=== PATIENT | male | born 1965 | race Caucasian/White ===

== ENCOUNTER 2016-12-23 10:15 | Emergency (ER) | payer OTHER ==
[~2016-12-23] VITALS: Ht 172.7 cm; Wt 77.1 kg
--- NOTE | 2016-12-23 10:42 | PHYS DOC ---
Adult General Chief Complaint Chief Complaint: ANIMAL BITE HPI HPI Patient is a 51-year-old male who presents with a dog bite to the right calf which occurred this morning at about 7:30. He was able to find the weight training instructor of the dog who told him the dog's shots are not up-to-date. He did notify police. Patient's tetanus is up-to-date. He is [employer]. Patient washed the dog bite with soap and water after the bite occurred. Review of Systems Review of Systems Constitutional: Denies fever or chills [] Respiratory: Denies cough or shortness of breath [] Musculoskeletal: Denies other than noted Allergies Allergies Allergies Coded Allergies Type Severity Reaction Last Updated Verified No Known Drug Allergies 12/23/16 No Physical Exam Physical Exam Constitutional: Well developed, well nourished, no acute distress, non-toxic appearance. [] HENT: Normocephalic, atraumatic, bilateral external ears normal, nose normal. [ ] Eyes: conjunctiva normal, no discharge. [] Neck: Normal range of motion, no stridor. [] Skin: Warm, dry, no erythema, no rash. [] Extremities: Right lower extremity: 2 superficial abrasions located on the upper posterior calf with some surrounding ecchymosis, appears consistent with a dog bite. There is no deep puncture wound present. Neurologic: Alert and oriented X 3, normal motor function, normal sensory function, no focal deficits noted. EKG EKG [] Radiology/Procedures Radiology/Procedures [] Course & Med Decision Making Course & Med Decision Making Pertinent Labs and Imaging studies reviewed. (See chart for details) Patient had a dog bite by a dog who does not have current rabies immunization, but the dog was identified, weight training instructor is aware, and police were notified. This was done by the patient prior to arrival. Patient's tetanus is up-to-date. There is no puncture wound or other indication for antibiotics. I discussed this with the patient. Precautions were given in terms of any evidence of infection, he should be rechecked, he is comfortable with that plan. Patient is stable for discharge. [] Dragon Disclaimer Dragon Disclaimer This chart was dictated in whole or in part using Voice Recognition software in a busy, high-work load, and often noisy Emergency Department environment. It may contain unintended and wholly unrecognized errors or omissions. Departure Departure: Impression: Primary Impression: Dog bite of calf Disposition: 01 HOME, SELF-CARE Condition: STABLE Additional Instructions: Keep it clean by washing 2-3 times a day with antibacterial soap and water. You may expect the area to become more bruised and painful over the next 1-2 days, then should start improving. You may expect some drainage of pinkish to orange clear fluid. If the area becomes more painful instead of getting better, red, hot to the touch, or any drainage of pus, we would consider antibiotics, it should be rechecked. As we Discussed, your tetanus is up-to-date. As we discussed, the dog is being observed and police are involved. Rabies is very rare in this area so observation of the dog at this time is all that we are recommending. VLADISLAV MOODY MD December 23, 2016 10:42
[2016-12-23 10:43] VITALS: BP 124/86
== END 2016-12-23 10:55 | disposition home or self-care (01) ==
LOC: ER 10:20
DX: S81.851A Open bite, right lower leg, initial encounter (principal); W54.0XXA Bitten by dog, initial encounter; Y93.89 Activity, other specified; Y99.8 Other external cause status; Y92.89 Other specified places as the place of occurrence of the external cause
CPT/HCPCS: 99281

== ENCOUNTER 2018-09-26 11:14 | Emergency (ER) | payer OTHER ==
[~2018-09-26] VITALS: Ht 172.7 cm; Wt 80.3 kg
[2018-09-26] MEDS ORDERED: IV RINGERS SOLUTION,LACTATED 1,000 ML IV SCH (11:36)
[2018-09-26] MEDS ORDERED: ONDANSETRON PF 4 MG/2 ML VIAL. IV ONE ×2 (12:00→13:10)
[2018-09-26 12:16] LABS: BASO % 0 % (0-3); EOS % 0 % (0-3); HEMATOCRIT 49.2 % (39.0-53.0); HEMOGLOBIN 16.9 g/dL (13.0-17.5); LYMPH # 0.5 x10^3/uL (1.0-4.8); LYMPH % 9 % (24-48); MEAN CORPUSCULAR HEMOGLOBIN 30 pg (25-35); MEAN CORPUSCULAR HGB CONC 34 g/dL (31-37); MEAN CORPUSCULAR VOLUME 89 fL (79-100); MONO # 0.6 x10^3/uL (0.0-1.1); MONO % 10 % (0-9); NEUT # 4.7 x10^3uL (1.8-7.7); NEUT % 81 % (31-73); PLATELET COUNT 228 x10^3/uL (140-400); RED BLOOD COUNT 5.55 x10^6/uL (4.30-5.70); RED CELL DISTRIBUTION WIDTH 12.5 % (11.5-14.5); WHITE BLOOD COUNT 5.8 x10^3/uL (4.0-11.0)
[2018-09-26 12:28] LABS: ALBUMIN/GLOBULIN RATIO 1.2 (1.0-1.7); CREATININE 1.3 mg/dL (0.7-1.3); GFR 58.2; MAGNESIUM 1.8 mg/dL (1.8-2.4); POTASSIUM 3.9 mmol/L (3.5-5.1); TOTAL BILIRUBIN 0.6 mg/dL (0.2-1.0); TOTAL PROTEIN 7.3 g/dL (6.4-8.2)
--- NOTE | 2018-09-26 13:00 | PHYS DOC ---
Past History Past Medical History: No Pertinent History Past Surgical History: Other Alcohol Use: None Drug Use: None Adult General Chief Complaint Chief Complaint: NAUSEA/VOMITING/DIARRHEA HPI HPI Patient is a 53-year-old male who presents with complaint of body aches, subjective fever as well as nausea and vomiting for the last 2 days. Patient states that pain associated with body aches is moderate. He also indicates that the vomiting is quite severe stating that he has not been able to keep anything down. He states that his last normal bowel movement was this morning. He does indicate that his last episode of vomitus was almost black in color. He denies seeing any blood and has had no blood in the stools. Review of Systems Review of Systems Constitutional: Complains of fever and chills [] Respiratory: Denies cough or shortness of breath [] Cardiovascular: No additional information not addressed in HPI [] GI: [place] of mild abdominal cramping with nausea and vomiting. Denies diarrhea [] Musculoskeletal: Complains of diffuse body aches/pain [] Neurologic: Denies headache, focal weakness or sensory changes [] All other systems were reviewed and found to be within normal limits, except as documented in this note. Current Medications Current Medications Current Medications Medications (Trade) Dose Ordered Sig/Divya Start Time Stop Time Status Last Admin Dose Admin Fentanyl Citrate (Fentanyl 2ml Vial) 50 mcg 1X ONCE 09/26/18 12:00 09/26/18 12:01 DC 09/26/18 11:54 50 MCG Lactated Ringer's 1,000 ml @ 1,000 mls/hr Q1H 09/26/18 11:36 09/26/18 12:35 DC 09/26/18 11:53 1,000 MLS/HR Ondansetron HCl (Zofran) 4 mg 1X ONCE 09/26/18 13:10 09/26/18 13:11 09/26/18 12:53 4 MG Allergies Allergies Allergies Coded Allergies Type Severity Reaction Last Updated Verified No Known Drug Allergies 09/26/18 No Physical Exam Physical Exam Constitutional: Well developed, well nourished, no acute distress, non-toxic appearance. [] HENT: Normocephalic, atraumatic, bilateral external ears normal, oropharynx moist, no oral exudates, nose normal. [] Eyes: PERRLA, EOMI, conjunctiva normal, no discharge. [] Neck: Normal range of motion, no tenderness, supple, no stridor. [] Cardiovascular: Regular rate and rhythm [] Lungs & Thorax: Bilateral breath sounds clear to auscultation [] Abdomen: Bowel sounds normal, soft, no tenderness. [] Skin: Warm, dry, no erythema, no rash. [] Extremities: No tenderness, no cyanosis, no clubbing, ROM intact, no edema. [] Neurologic: Alert and oriented X 3, no focal deficits noted. [] Current Patient Data Vital Signs Vital Signs Date Time Temp Pulse Resp B/P (MAP) Pulse Ox O2 Delivery O2 Flow Rate FiO2 09/26/18 11:54 18 Room Air 09/26/18 11:15 98.8 83 96 Lab Results Laboratory Tests Test 09/26/18 11:30 White Blood Count 5.8 x10^3/uL (4.0-11.0) Red Blood Count 5.55 x10^6/uL (4.30-5.70) Hemoglobin 16.9 g/dL (13.0-17.5) Hematocrit 49.2 % (39.0-53.0) Mean Corpuscular Volume 89 fL (79-100) Mean Corpuscular Hemoglobin 30 pg (25-35) Mean Corpuscular Hemoglobin Concent 34 g/dL (31-37) Red Cell Distribution Width 12.5 % (11.5-14.5) Platelet Count 228 x10^3/uL (140-400) Neutrophils (%) (Auto) 81 % (31-73) H Lymphocytes (%) (Auto) 9 % (24-48) L Monocytes (%) (Auto) 10 % (0-9) H Eosinophils (%) (Auto) 0 % (0-3) Basophils (%) (Auto) 0 % (0-3) Neutrophils # (Auto) 4.7 x10^3uL (1.8-7.7) Lymphocytes # (Auto) 0.5 x10^3/uL (1.0-4.8) L Monocytes # (Auto) 0.6 x10^3/uL (0.0-1.1) Eosinophils # (Auto) 0.0 x10^3/uL (0.0-0.7) Basophils # (Auto) 0.0 x10^3/uL (0.0-0.2) Sodium Level 140 mmol/L (136-145) Potassium Level 3.9 mmol/L (3.5-5.1) Chloride Level 102 mmol/L (98-107) Carbon Dioxide Level 28 mmol/L (21-32) Anion Gap 10 (6-14) Blood Urea Nitrogen 24 mg/dL (8-26) Creatinine 1.3 mg/dL (0.7-1.3) Estimated GFR (Cockcroft-Gault) 58.2 BUN/Creatinine Ratio 18 (6-20) Glucose Level 111 mg/dL (70-99) H Calcium Level 9.0 mg/dL (8.5-10.1) Magnesium Level 1.8 mg/dL (1.8-2.4) Total Bilirubin 0.6 mg/dL (0.2-1.0) Aspartate Amino Transferase (AST) 23 U/L (15-37) Alanine Aminotransferase (ALT) 39 U/L (16-63) Alkaline Phosphatase 87 U/L (46-116) Total Protein 7.3 g/dL (6.4-8.2) Albumin 4.0 g/dL (3.4-5.0) Albumin/Globulin Ratio 1.2 (1.0-1.7) Lipase 96 U/L (73-393) EKG EKG [] Radiology/Procedures Radiology/Procedures [] Course & Med Decision Making Course & Med Decision Making Pertinent Labs and Imaging studies reviewed. (See chart for details) [] Dragon Disclaimer Dragon Disclaimer This electronic medical record was generated, in whole or in part, using a voice recognition dictation system. Departure Departure: Impression: Primary Impression: Gastroenteritis Disposition: 01 HOME, SELF-CARE Condition: STABLE Patient Instructions: Viral Gastroenteritis Scripts Metoclopramide Hcl (REGLAN) 10 Mg Tablet 1 TAB PO QID PRN for NAUSEA/VOMITING, #12 TAB Prov: DESHAWN CUNNINGHAM Jr. DO 09/26/18 Ondansetron Hcl (ZOFRAN) 4 Mg Tablet 1 TAB PO PRN Q6-8HRS PRN for NAUSEA/VOMITING, #12 TAB Prov: DESHAWN CUNNINGHAM Jr. DO 09/26/18 DESHAWN CUNNINGHAM Jr. DO Sep 26, 2018 13:00
[2018-09-26 13:08] LABS: INFLUENZA A PATIENT NEGATIVE (NEGATIVE); INFLUENZA B PATIENT NEGATIVE (NEGATIVE)
[2018-09-26] MEDS ORDERED: FAMOTIDINE 20 MG/2 ML VIAL IVP ONE (13:30)
[2018-09-26] MEDS ORDERED: METOCLOPRAMIDE HCL 10 MG/2 ML VIAL. IV ONE (13:30)
[2018-09-26] MEDS ORDERED: KETOROLAC 30 MG/ML VIAL. IV ONE (13:30)
[2018-09-26] MEDS ORDERED: IV NORMAL SALINE 1,000ML 1,000 ML IV ONE (13:45)
[2018-09-26] MEDS ORDERED: METO10TA81 PO (14:18)
[2018-09-26] MEDS ORDERED: ONDA4TAB7 PO (14:18)
[2018-09-26 14:32] VITALS: BP 104/57
== END 2018-09-26 14:10 | disposition home or self-care (01) ==
LOC: ER 11:14
DX: K52.9 Noninfective gastroenteritis and colitis, unspecified (principal)
CPT/HCPCS: 36415; 80053; 83690; 83735; 85025; 87804; 96361; 96374; 96375; 96376; 99283; J1885; J2405; J2765; J3010; J3490; J7120; J7030

== ENCOUNTER 2019-06-30 19:51 | Emergency (ER) | payer OTHER ==
[~2019-06-30] VITALS: Ht 172.7 cm; Wt 80.3 kg
[~2019-06-30 19:51] MED LIST: METO10TA81 PO; ONDA4TAB7 PO
[2019-06-30 20:03] VITALS: BP 179/86
[2019-06-30] MEDS ORDERED: BACITRACIN ZINC TOPICAL OINT PACKET. TP ONE (20:45)
[2019-06-30] MEDS ORDERED: AMOX1TAB61 PO (20:58)
--- NOTE | 2019-06-30 20:58 | PHYS DOC ---
Past History Past Medical History: No Pertinent History Past Surgical History: No Surgical History Alcohol Use: None Drug Use: None Adult General Chief Complaint Chief Complaint: ANIMAL BITE HPI HPI is a 54-year-old male who presents with laceration to his lip after being given by his [place] soto puppy. Patient states that he was playing with the puppy and puppy was playing rough and bit his lip. He denies any other injuries.[] Review of Systems Review of Systems Constitutional: Denies fever or chills [] Respiratory: Denies cough or shortness of breath [] Cardiovascular: No additional information not addressed in HPI [] Integument: Positive laceration to lower lip[] Neurologic: Denies headache, focal weakness or sensory changes [] Current Medications Current Medications Current Medications Medications (Trade) Dose Ordered Sig/Divya Start Time Stop Time Status Last Admin Dose Admin Amoxicillin/ Clavulanate Potassium (Augmentin 875/ 125mg) 1 tab 1X ONCE 06/30/19 21:30 06/30/19 21:31 Bacitracin (Bacitracin Topical Pkt) 1 pkt 1X ONCE 06/30/19 20:45 06/30/19 20:51 DC Allergies Allergies Allergies Coded Allergies Type Severity Reaction Last Updated Verified No Known Drug Allergies 09/26/18 No Physical Exam Physical Exam Constitutional: Well developed, well nourished, no acute distress, non-toxic appearance. [] Cardiovascular:Heart rate regular rhythm, no murmur [] Lungs & Thorax: Bilateral breath sounds clear to auscultation [] Skin: There is approximately 1.5 cm laceration to the lower lip with formation of flap in stellate shape within the vermilion border extending into subcutaneous tissue. [] Neurologic: Alert and oriented X 3, normal motor function, normal sensory function, no focal deficits noted. [] Current Patient Data Vital Signs Vital Signs Date Time Temp Pulse Resp B/P (MAP) Pulse Ox O2 Delivery O2 Flow Rate FiO2 06/30/19 20:03 75 18 96 Room Air EKG EKG [] Radiology/Procedures Radiology/Procedures [] Course & Med Decision Making Course & Med Decision Making Pertinent Labs and Imaging studies reviewed. (See chart for details) Laceration Repair by me: Anesthesia: 1% lidocaine locally Location: Lower lip Tendon/Joint/Nerves: No injury Foreign body: None detected after copious irrigation and exploration Technique: A total of 5 Simple Interrupted Sutures were placed utilizing 6-0 Ethilon suture material Complexity: No subcutaneous sutures/mucosal repair/edge excision Post Closure Length: 1.5 cm Patient's bleeding was easily controlled in the department and there is no indication of anemia. No evidence of compartment syndrome, neurologic injury, vascular injury, open joint, tendon laceration, or foreign body. Patient is appropriate for outpatient follow up. 48 hour wound check. Scar minimization instructions given. Dragon Disclaimer Dragon Disclaimer This electronic medical record was generated, in whole or in part, using a voice recognition dictation system. Departure Departure: Impression: Primary Impression: Laceration of lip Additional Impression: Dog bite of vermilion border of lower lip Disposition: HOME, SELF-CARE Condition: STABLE Referrals: TORRES SKELTON DO (PCP) Patient Instructions: Animal Bite, Facial Laceration Additional Instructions: Return for suture removal in 5 days. Scripts Amoxicillin/Potassium Clav (AUGMENTIN 875-125 TABLET) 1 Each Tablet 1 TAB PO BID for dog bite for 7 Days, #14 TAB 0 Refills Prov: DESHAWN CUNNINGHAM Jr. DO 06/30/19 Problem Qualifiers Primary Impression: Laceration of lip Encounter type: initial encounter Qualified Codes: S01.511A - Laceration without foreign body of lip, initial encounter Additional Impression: Dog bite of vermilion border of lower lip Encounter type: initial encounter Qualified Codes: S01.551A - Open bite of lip, initial encounter; W54.0XXA - Bitten by dog, initial encounter DESHAWN CUNNINGHAM Jr., DO Jun 30, 2019 20:58
[2019-06-30] MEDS ORDERED: AMOXICILLIN/K CLAV 875/125MG TABLET. PO ONE (21:30)
== END 2019-06-30 21:00 | disposition home or self-care (01) ==
LOC: ER 19:51
DX: S01.511A Laceration without foreign body of lip, initial encounter (principal); W54.0XXA Bitten by dog, initial encounter; Y93.89 Activity, other specified; Y92.89 Other specified places as the place of occurrence of the external cause; Y99.8 Other external cause status
CPT/HCPCS: 40650; 99284

== ENCOUNTER 2019-08-20 15:35 | Emergency (ER) | payer OTHER ==
[~2019-08-20] VITALS: Ht 172.7 cm; Wt 79.8 kg
[~2019-08-20 15:35] MED LIST changes: +AMOX1TAB61 PO
[2019-08-20 15:45] VITALS: BP 110/73
[2019-08-20] MEDS ORDERED: AMOXICILLIN/K CLAV 875/125MG TABLET. PO ONE (16:00)
[2019-08-20] MEDS ORDERED: oxyCODONE/APAP 7.5/325 1 TAB TABLET PO ONE (16:00)
[2019-08-20] MEDS ORDERED: OXYC1TAB19 PO (16:04)
[2019-08-20] MEDS ORDERED: AMOX1TAB61 PO (16:04)
--- NOTE | 2019-08-20 16:04 | PHYS DOC ---
Past History Past Medical History: No Pertinent History Past Surgical History: No Surgical History Alcohol Use: None Drug Use: None Adult General Chief Complaint Chief Complaint: ANIMAL BITE HPI HPI Patient is a 54-year-old male who presents with injury to both of his hands after being scratched and bitten by his cat. Patient indicates that his cat had gotten out into the backyard where they're mastiff was and when he went to retrieve the cat, it became scared, bit and scratched him. He states that cat is up-to-date on all immunizations. He rates pain as moderate in both hands.[] Review of Systems Review of Systems Constitutional: Denies fever or chills [] Respiratory: Denies cough or shortness of breath [] Cardiovascular: No additional information not addressed in HPI [] Musculoskeletal: Positive bilateral hand and forearm pain [] Integument: Numerous abrasions and puncture ramesh[] Current Medications Current Medications Current Medications Medications (Trade) Dose Ordered Sig/Divya Start Time Stop Time Status Last Admin Dose Admin Amoxicillin/ Clavulanate Potassium (Augmentin 875/ 125mg) 1 tab 1X ONCE 08/20/19 16:00 08/20/19 16:01 DC Oxycodone/ Acetaminophen (Percocet 7.5/ 325) 1 tab 1X ONCE 08/20/19 16:00 08/20/19 16:01 DC Allergies Allergies Allergies Coded Allergies Type Severity Reaction Last Updated Verified No Known Drug Allergies 09/26/18 No Physical Exam Physical Exam Constitutional: Well developed, well nourished, no acute distress, non-toxic appearance. [] Cardiovascular: Regular rate and rhythm[] Lungs & Thorax: Bilateral breath sounds clear to auscultation [] Skin: Skin of both hands and forearms demonstrates numerous abrasions insistent with Scratches as well as small puncture wounds consistent with cat bites. [] Current Patient Data Vital Signs Vital Signs Date Time Temp Pulse Resp B/P (MAP) Pulse Ox O2 Delivery O2 Flow Rate FiO2 08/20/19 15:45 98.1 72 16 98 Room Air EKG EKG [] Radiology/Procedures Radiology/Procedures [] Course & Med Decision Making Course & Med Decision Making Pertinent Labs and Imaging studies reviewed. (See chart for details) [] Dragon Disclaimer Dragon Disclaimer This electronic medical record was generated, in whole or in part, using a voice recognition dictation system. Departure Departure: Impression: Primary Impression: Bite from cat Disposition: 01 HOME, SELF-CARE Condition: STABLE Referrals: TORRES SKELTON DO (PCP) Patient Instructions: Animal Bite Scripts Oxycodone Hcl/Acetaminophen (PERCOCET 7.5-325 MG TABLET ) 1 Each Tablet 1 TAB PO Q4-6HRS PRN for PAIN MDD 4 Tablet(s), #15 TAB 0 Refills Prov: DESHAWN CUNNINGHAM Jr., DO 08/20/19 Amoxicillin/Potassium Clav (AUGMENTIN 875-125 TABLET) 1 Each Tablet 1 TAB PO BID for infection for 10 Days, #20 TAB 0 Refills Prov: DESHAWN CUNNINGHAM Jr., DO 08/20/19 Problem Qualifiers Primary Impression: Bite from cat Encounter type: initial encounter Qualified Codes: W55.01XA - Bitten by cat, initial encounter DESHAWN CUNNINGHAM Jr., DO Aug 20, 2019 16:04
== END 2019-08-20 16:28 | disposition home or self-care (01) ==
LOC: ER 15:35
DX: S60.512A Abrasion of left hand, initial encounter (principal); S60.511A Abrasion of right hand, initial encounter; S50.812A Abrasion of left forearm, initial encounter; S50.811A Abrasion of right forearm, initial encounter; W55.01XA Bitten by cat, initial encounter; Y93.89 Activity, other specified; Y92.89 Other specified places as the place of occurrence of the external cause; Y99.8 Other external cause status
CPT/HCPCS: 99283